=== PATIENT | female | born 1950 | race Caucasian/White ===

== ENCOUNTER 2021-03-15 10:35 | Emergency (ER) | payer MEDICARE, BC ==
--- NOTE | 2021-03-15 15:30 | EDM.PDOC ---
ED HPI GENERAL MEDICAL PROBLEM - General Chief Complaint: Cardiovascular Problem Stated Complaint: HEART CONCERNS Time Seen by Provider: 03/15/21 11:30 Source of Information: Reports: Patient History Limitations: Reports: No Limitations - History of Present Illness INITIAL COMMENTS - FREE TEXT/NARRATIVE: This is a 70-year-old female with history of hypothyroidism and prior thyr oidectomy who comes with concerns of fatigue, shortness of breath. She reports that she had an ongoing work-up through her primary care provider, she recently had an echocardiogram performed that showed tricuspid valve regurgitation and right atrial enlargement as well as mild RV dysfunction. She is concerned about these findings. She is also noted that she has had more exertional dyspnea recently. She also has some intermittent chest discomfort, does not seem to be exertional. She reports a lot of stress in her family right now, she is planning her father's memorial, and and there were significant differences in view between the siblings. She has no cough. No fevers or chills. No tick bites. No history of cardiac disease other than that which was outlined in her echo. - Related Data Allergies Allergy/AdvReac Type Severity Reaction Status Date / Time Dairy Products Allergy Abdominal Verified 03/15/21 10:54 Pain Home Meds: Home Meds Alendronate [Fosamax] 35 mg PO WEEKLY 03/15/21 [History] Aspirin [Adult Low Dose Aspirin EC] 81 mg PO ASDIRECTED 03/15/21 [History] Calcium Carbonate/Vitamin D3 [Calcium 600-Vit D3 200 Tablet] 1 each PO DAILY 03/15/21 [History] [place] Supp 1 supp TOP ASDIRECTED 03/15/21 [History] Cod Liver Oil 1 each PO DAILY 03/15/21 [History] Diclofenac Sodium [Voltaren 1% Gel] 1 applic TOP QID PRN 03/15/21 [History] Gluc Wright/Chondro Wright A/Vit C/Mn [Glucosamine-Chondroitin Cap] 1 each PO DAILY 03/15/21 [History] Levothyroxine [Synthroid] 100 mcg PO ACBREAKFAST 03/15/21 [History] Multivitamin [Multi-Vitamin Daily] 1 each PO DAILY 03/15/21 [History] Oxybutynin 5 mg PO BID 03/15/21 [History] Past Medical History HEENT History: Reports: None Cardiovascular History: Reports: None, SOB on Exertion, Other (See Below) Other Cardiovascular History: echo with enlargement of right atrium Respiratory History: Reports: None Gastrointestinal History: Reports: None Genitourinary History: Reports: Other (See Below) Other Genitourinary History: over ative bladder OUTDOOR STUDIES PROFESSOR History: Reports: Other (See Below) Other OUTDOOR STUDIES PROFESSOR History: uterine prolapse. vaginal atrophy Musculoskeletal History: Reports: Osteoarthritis, Other (See Below) Other Musculoskeletal History: osteopenia Neurological History: Reports: None Psychiatric History: Reports: None Hematologic History: Reports: Idiopathic Thrombocytopenia Other Hematologic History: thrombocytopenia-mild on Bone marrow Immunologic History: Reports: None Oncologic (Cancer) History: Reports: Thyroid Dermatologic History: Reports: None - Infectious Disease History Infectious Disease History: Reports: Chicken Pox, Measles, Mumps Other Infectious Disease History: had covid vacc x 2 in 2020 - Past Surgical History HEENT Surgical History: Reports: None GI Surgical History: Reports: None Endocrine Surgical History: Reports: Thyroidectomy Other Endocrine Surgeries/Procedures: 05/26 Social & Family History - Tobacco Use Tobacco Use Status *Q: Never Tobacco User - Caffeine Use Caffeine Use: Reports: None - Recreational Drug Use Recreational Drug Use: No ED ROS GENERAL - Review of Systems Review Of Systems: See Below Constitutional: Reports: Fatigue HEENT: Reports: No Symptoms Respiratory: Reports: Shortness of Breath Cardiovascular: Reports: No Symptoms Endocrine: Reports: No Symptoms GI/Abdominal: Reports: No Symptoms : Reports: No Symptoms Musculoskeletal: Reports: No Symptoms Skin: Reports: No Symptoms Neurological: Reports: No Symptoms Psychiatric: Reports: No Symptoms Hematologic/Lymphatic: Reports: No Symptoms Immunologic: Reports: No Symptoms ED EXAM, GENERAL - Physical Exam Exam: See Below Exam Limited By: No Limitations General Appearance: Alert, No Apparent Distress Ears: Normal External Exam Nose: Normal Inspection Throat/Mouth: Normal Inspection Head: Atraumatic, Normocephalic Neck: Other (well healed surgical scar from thyroidectomy) Respiratory/Chest: Lungs Clear Cardiovascular: Regular Rate, Rhythm, No Murmur GI/Abdominal: Soft, Non-Tender Back Exam: Normal Inspection Extremities: Normal Inspection. No: Pedal Edema Neurological: Alert, Oriented Psychiatric: Normal Affect, Normal Mood Skin Exam: Warm, Dry #1 Interpretation EKG Interpretation Comments: Normal sinus rhythm, rate is 51. Normal intervals. No ST segment or T wave changes indicative of ischemia. Course - Vital Signs Last Recorded V/S: Last Vital Signs Temp 36.5 C 03/15/21 10:54 Pulse 62 03/15/21 14:43 Resp 9 L 03/15/21 14:43 BP 162/86 H 03/15/21 14:43 Pulse Ox 97 03/15/21 11:16 - Orders/Labs/Meds Orders: Active Orders 24 hr Category Date Time Status EKG Documentation Completion [RC] ASDIRECTED Care 03/15/21 11:59 Active EKG 12 Lead [EK] Routine Ther 03/15/21 11:59 Ordered Labs: Laboratory Tests 03/15/21 03/15/21 03/15/21 Range/Units 12:10 12:10 12:10 WBC 3.4 L (4.5-11.0) K/uL RBC 5.32 (3.30-5.50) M/uL Hgb 15.7 H (12.0-15.0) g/dL Hct 47.9 (36.0-48.0) % MCV 90 (80-98) fL MCH 30 (27-31) pg MCHC 33 (32-36) % Plt Count 140 L (150-400) K/uL Neut % (Auto) 62.0 (36-66) % Lymph % (Auto) 26.5 (24-44) % [place] % (Auto) 9.7 H (2-6) % Eos % (Auto) 1.2 L (2-4) % Baso % (Auto) 0.6 (0-1) % Sodium 144 (140-148) mmol/L Potassium 4.3 (3.6-5.2) mmol/L Chloride 106 (100-108) mmol/L Carbon Dioxide 30 (21-32) mmol/L Anion Gap 12.3 (5.0-14.0) mmol/L BUN 20 H (7-18) mg/dL Creatinine 1.1 H (0.6-1.0) mg/dL Est Cr Clr Drug Dosing 41.10 mL/min Estimated GFR (MDRD) 49 L (>60) Glucose 96 (74-106) mg/dL Calcium 8.9 (8.5-10.1) mg/dL Total Bilirubin 1.8 H (0.2-1.0) mg/dL AST 21 (15-37) U/L ALT 26 (12-78) U/L Alkaline Phosphatase 81 (46-116) U/L Troponin I < 0.017 (0.000-0.056) ng/mL Total Protein 6.2 L (6.4-8.2) g/dL Albumin 3.4 (3.4-5.0) g/dL Globulin 2.8 (2.3-3.5) g/dL Albumin/Globulin Ratio 1.2 (1.2-2.2) TSH, Ultra Sensitive 1.133 (0.358-3.740) uIU/mL Lyme Disease IgG Ab Negative (Negative) Lyme Disease IgM Ab Negative (Negative) - Re-Assessments/Exams Free Text/Narrative Re-Assessment/Exam: 70-year-old female history of hypothyroidism presents with multiple concerns, primarily seems to be that of increasing fatigue and dyspnea. She does have a recent echocardiogram that shows tricuspid regurgitation, right atrial enlargement, some mild RV dysfunction. No focal wall motion abnormalities noted and LV ejection fraction is grossly normal. On exam she has normal vitals and physical exam is reassuring. Her EKG is normal, no signs of ischemia. Labs obtained including screening electrolytes, troponin testing after weeks of symptoms, TSH, Lyme titers, CBC all unremarkable. She does report some increased family stressors as of late. My concern for an acute emergent pathology is low, I do not think this is ACS. She has no evidence of ongoing infection. I do wonder if perhaps her valvular dysfunction is starting to contribute to her symptoms, she has cardiology follow-up planned at the beginning of March and I think it is appropriate to wait until this appointment. Overall, I think she is safe for discharge at this time. We discussed return precautions. I have asked her to arrange a follow-up appoint with her primary care provider. 03/15/21 15:39 Departure - Departure Time of Disposition: 15:29 Disposition: Home, Self-Care 01 Clinical Impression: Fatigue Qualifiers: Fatigue type: unspecified Qualified Code(s): R53.83 - Other fatigue Instructions: Shortness of Breath, Adult, [id number], Fatigue Referrals: Kiesha Hartman CNM [Primary Care Provider] - Forms: ED Department Discharge Additional Instructions: As discussed, your work-up today in the ER was reassuring. Please follow-up with your architectural representative as planned. It would also be good to make a follow-up appointment with your primary care provider. If you develop any worsening shortness of breath, chest pain, or other new symptoms that are concerning to you we are always happy to evaluate you in the ER. Thank you for trusting us to care for you today. Sepsis Event Note (ED) - Evaluation Sepsis Screening Result: No Definite Risk - Focused Exam Vital Signs: Vital Signs Temp Pulse Resp BP Pulse Ox 03/15/21 14:43 62 9 L 162/86 H 03/15/21 13:39 50 L 12 121/76 03/15/21 12:39 48 L 12 144/75 H 03/15/21 11:16 57 L 11 L 118/72 97 03/15/21 11:14 55 L 03/15/21 10:54 36.5 C 55 L 11 L 126/68 99 - My Orders Last 24 Hours: My Active Orders 03/15/21 11:59 EKG Documentation Completion [RC] ASDIRECTED EKG 12 Lead [EK] Routine - Assessment/Plan Last 24 Hours: My Active Orders 03/15/21 11:59 EKG Documentation Completion [RC] ASDIRECTED EKG 12 Lead [EK] Routine
== END 2021-03-15 15:56 | disposition home or self-care (01) ==
LOC: JP.ED 10:35
DX: R53.83 Other fatigue (principal); E03.9 Hypothyroidism, unspecified; Z79.82 Long term (current) use of aspirin; Z91.011 Allergy to milk products; Z79.899 Other long term (current) drug therapy
CPT/HCPCS: 36415; 80053; 84443; 84484; 85025; 93005; 99283-25

== ENCOUNTER 2021-06-07 18:47 | Emergency (ER) | payer MEDICARE, BC ==
--- NOTE | 2021-06-07 20:32 | EDM.PDOC ---
ED HPI GENERAL MEDICAL PROBLEM - General Chief Complaint: Cardiovascular Problem Stated Complaint: HEART RACING Time Seen by Provider: 06/07/21 19:05 Source of Information: Reports: Patient History Limitations: Reports: No Limitations - History of Present Illness INITIAL COMMENTS - FREE TEXT/NARRATIVE: Randi is a 70-year-old female presenting to the ED for evaluation of acute onset of chest pain and some shortness of breath. Symptoms started approximately an hour prior to arrival to the ED. Patient had been packing up there mobile home in preparation for going on a mission trip to [place]. She started to feel short of breath. The patient does have a history of interstitial lung disease and has had dyspnea on exertion. She felt chest tightness which made her more anxious and she started to hyperventilate patient when she felt like she could not take a deep breath. This exacerbated her anxiety more prompting her to hyperventilate more. elected to bring her in for evaluation as her getting ready to leave on the road for [place]. - Related Data Allergies Allergy/AdvReac Type Severity Reaction Status Date / Time Dairy Products Allergy Abdominal Verified 06/07/21 19:41 Pain Home Meds: Home Meds Alendronate [Fosamax] 35 mg PO WEEKLY 03/15/21 [History] Aspirin [Adult Low Dose Aspirin EC] 81 mg PO DAILY 03/15/21 [History] Calcium Carbonate/Vitamin D3 [Calcium 600-Vit D3 200 Tablet] 1 each PO BID 03/15/21 [History] [place] Supp 1 supp TOP ASDIRECTED 03/15/21 [History] Cod Liver Oil 1 each PO DAILY 03/15/21 [History] Gluc Wright/Chondro Wright A/Vit C/Mn [Glucosamine-Chondroitin Cap] 1 each PO DAILY 03/15/21 [History] Levothyroxine [Synthroid] 100 mcg PO ACBREAKFAST 03/15/21 [History] Multivitamin [Multi-Vitamin Daily] 1 each PO DAILY 03/15/21 [History] Oxybutynin 5 mg PO BID 03/15/21 [History] Past Medical History HEENT History: Reports: Other (See Below) Other HEENT History: glasses Cardiovascular History: Reports: SOB on Exertion, Other (See Below) Other Cardiovascular History: echo with enlargement of right atrium and ventricle Respiratory History: Reports: Other (See Below) Other Respiratory History: Atelectisis Gastrointestinal History: Reports: None Genitourinary History: Reports: Other (See Below) Other Genitourinary History: over active bladder END PACKER History: Reports: Other (See Below) Other END PACKER History: uterine prolapse. vaginal atrophy Musculoskeletal History: Reports: Osteoarthritis, Other (See Below) Other Musculoskeletal History: osteopenia Neurological History: Reports: None Psychiatric History: Reports: Anxiety Endocrine/Metabolic History: Reports: Hypothyroidism Hematologic History: Reports: Idiopathic Thrombocytopenia Other Hematologic History: thrombocytopenia-mild on Bone marrow Immunologic History: Reports: None Oncologic (Cancer) History: Reports: Thyroid Dermatologic History: Reports: Psoriasis - Infectious Disease History Infectious Disease History: Reports: Chicken Pox, Measles, Mumps Other Infectious Disease History: had covid vacc x 2 in 2020 - Past Surgical History Female Surgical History: Reports: None Endocrine Surgical History: Reports: Thyroidectomy Other Endocrine Surgeries/Procedures: 05/26 of thyroid removed Social & Family History - Tobacco Use Tobacco Use Status *Q: Never Tobacco User - Caffeine Use Caffeine Use: Reports: None - Recreational Drug Use Recreational Drug Use: No ED ROS GENERAL - Review of Systems Review Of Systems: See Below Constitutional: Reports: No Symptoms HEENT: Reports: No Symptoms Respiratory: Reports: Shortness of Breath. Denies: Cough Cardiovascular: Reports: Chest Pain (Chest pressure) Endocrine: Reports: No Symptoms GI/Abdominal: Reports: No Symptoms : Reports: No Symptoms Musculoskeletal: Reports: No Symptoms Skin: Reports: No Symptoms Neurological: Reports: No Symptoms Psychiatric: Reports: Anxiety Hematologic/Lymphatic: Reports: No Symptoms Immunologic: Reports: No Symptoms ED EXAM, GENERAL - Physical Exam Exam: See Below Exam Limited By: No Limitations General Appearance: Alert, No Apparent Distress, Anxious Eye Exam: Bilateral Eye: EOMI, PERRL Throat/Mouth: Normal Inspection, Normal Oropharynx, Normal Voice, No Airway Compromise Head: Atraumatic, Normocephalic Neck: Normal Inspection, Supple. No: Lymphadenopathy (R), Lymphadenopathy (L) Respiratory/Chest: No Respiratory Distress, Lungs Clear, Normal Breath Sounds Cardiovascular: Normal Peripheral Pulses, Regular Rate, Rhythm, No Murmur Peripheral Pulses: 2+: Radial (L), Radial (R), Posterior Tibial (L), Posterior Tibial (R) GI/Abdominal: Normal Bowel Sounds, Soft, Non-Tender Back Exam: Normal Inspection, Full Range of Motion Extremities: Normal Inspection, Normal Range of Motion, No Pedal Edema, Normal Capillary Refill Neurological: Alert, Oriented, Normal Cognition, No Motor/Sensory Deficits Psychiatric: Normal Affect, Normal Mood Skin Exam: Warm, Dry, Intact, Normal Color Lymphatic: No Adenopathy #1 Interpretation EKG Date: 06/07/21 Time: 18:39 Rhythm: NSR Rate (Beats/Min): 70 [place]: Normal P-Wave: Enlarged (Left atrial enlargement) QRS: Normal ST-T: Normal QT: Normal Comparison: NA - No Prior EKG Course - Vital Signs Last Recorded V/S: Last Vital Signs Temp 36.4 C 06/07/21 19:08 Pulse 55 L 06/07/21 21:01 Resp 16 06/07/21 19:08 BP 147/88 H 06/07/21 21:01 Pulse Ox 97 06/07/21 19:08 - Orders/Labs/Meds Labs: Laboratory Tests 06/07/21 06/07/21 Range/Units 19:07 19:07 WBC 5.2 (4.5-11.0) K/uL RBC 5.49 (3.30-5.50) M/uL Hgb 16.1 H (12.0-15.0) g/dL Hct 46.9 (36.0-48.0) % MCV 85 (80-98) fL MCH 29 (27-31) pg MCHC 34 (32-36) % Plt Count 144 L (150-400) K/uL Neut % (Auto) 40.6 (36-66) % Lymph % (Auto) 48.1 H (24-44) % [place] % (Auto) 10.3 H (2-6) % Eos % (Auto) 0.8 L (2-4) % Baso % (Auto) 0.2 (0-1) % Sodium 141 (140-148) mmol/L Potassium 3.5 L (3.6-5.2) mmol/L Chloride 103 (100-108) mmol/L Carbon Dioxide 24 (21-32) mmol/L Anion Gap 17.5 H (5.0-14.0) mmol/L BUN 21 H (7-18) mg/dL Creatinine 1.1 H (0.6-1.0) mg/dL Est Cr Clr Drug Dosing 40.64 mL/min Estimated GFR (MDRD) 49 L (>60) Glucose 93 (74-106) mg/dL Calcium 9.2 (8.5-10.1) mg/dL Total Bilirubin 1.7 H (0.2-1.0) mg/dL AST 25 (15-37) U/L ALT 27 (12-78) U/L Alkaline Phosphatase 72 (46-116) U/L Troponin I < 0.017 (0.000-0.056) ng/mL Total Protein 6.8 (6.4-8.2) g/dL Albumin 3.9 (3.4-5.0) g/dL Globulin 2.9 (2.3-3.5) g/dL Albumin/Globulin Ratio 1.3 (1.2-2.2) TSH, Ultra Sensitive 1.055 (0.358-3.740) uIU/mL - Radiology Interpretation Free Text/Narrative:: I reviewed the chest x-ray showing interstitial lung disease. There is no evidence for acute infiltrates. There is no cardiomegaly. - Re-Assessments/Exams Free Text/Narrative Re-Assessment/Exam: 06/11/21 18:11 I reviewed the patient's chest x-ray which was unremarkable, EKG which shows some left atrial enlargement, and labs which show a normal CBC, comprehensive metabolic panel, troponin and CRP. It appears the patient may have had a panic attack due to some dyspnea on exertion triggering hyperventilation. The patient's work-up is unremarkable at this time. We did talk about atrial enlargement especially her right atrial enlargement and its effects on the heart, namely development of paroxysmal atrial fibrillation. I did reassure her that I do not see nothing worrisome in the work-up today. Patient is suitable for discharge at this time and can proceed with her trip to [place]. Departure - Departure Time of Disposition: 20:25 Disposition: Home, Self-Care 01 Clinical Impression: Acute hyperventilation, Interstitial pulmonary disease, Right atrial enlargement Tricuspid valve regurgitation Qualifiers: Cardiac valve disease etiology: nonrheumatic Qualified Code(s): I36.1 - Nonrheumatic tricuspid (valve) insufficiency Instructions: Hyperventilation Referrals: Kiesha Hartman CNM [Primary Care Provider] - Forms: ED Department Discharge Care Plan Goals: Your work-up today has shown that this is likely related to hyperventilation syndrome. I believe that with the combination of your activity and getting a little short of breath triggered this involuntary response. I did review your medical records which showed you have right atrial enlargement secondary to leaky tricuspid valve but otherwise your right sided heart pressures were normal going through the lungs. This is also reassuring that this was not cardiac in origin. I did check your thyroid function which is also in the normal range. Your remainder of your work-up showed that you are slightly dehydrated with hemoconcentration of your hemoglobin at 16.1. I would expect it to be anywhere between 12 and 15. Your cardiac enzymes were normal as was your EKG. I feel that it is probably okay to go on your mission trip. Sepsis Event Note (ED) - Evaluation Sepsis Screening Result: No Definite Risk - Problem List & Annotations (1) Acute hyperventilation SNOMED Code(s): 19558555 Code(s): R06.4 - HYPERVENTILATION Status: Acute Priority: High (2) Interstitial pulmonary disease SNOMED Code(s): 741899624 Code(s): J84.9 - INTERSTITIAL PULMONARY DISEASE, UNSPECIFIED Status: Chronic Priority: Medium (3) Right atrial enlargement SNOMED Code(s): 62985575582305 Code(s): I51.7 - CARDIOMEGALY Status: Chronic Priority: Medium (4) Tricuspid valve regurgitation Status: Chronic Priority: Medium Qualifiers: Cardiac valve disease etiology: nonrheumatic Qualified Code(s): I36.1 - Nonrheumatic tricuspid (valve) insufficiency - Problem List Review Problem List Initiated/Reviewed/Updated: Yes
--- NOTE | 2021-06-08 08:58 | CR ---
CHEST: 2 view CLINICAL HISTORY:Dyspnea COMPARISON:None FINDINGS: The lungs are hyperaerated. The heart size, pulmonary vascularity and hilar structures are normal. No infiltrate effusion or pneumothorax is seen. IMPRESSION: No acute cardiopulmonary process.
== END 2021-06-07 21:12 | disposition home or self-care (01) ==
LOC: JP.ED 18:47
DX: I36.1 Nonrheumatic tricuspid (valve) insufficiency (principal); J84.9 Interstitial pulmonary disease, unspecified; I51.7 Cardiomegaly; R06.4 Hyperventilation; E03.9 Hypothyroidism, unspecified; Z91.011 Allergy to milk products; Z79.82 Long term (current) use of aspirin; Z79.899 Other long term (current) drug therapy
CPT/HCPCS: 36415; 71046; 71046-26; 80053; 84443; 84484; 85025; 93005; 99285-25